=== PATIENT | female | born 1980 | race Two or more races ===

== ENCOUNTER 2016-09-09 16:00 | Emergency (ER) | payer MEDICAID ==
[~2016-09-09] VITALS: Ht 160 cm; Wt 85.7 kg
[2016-09-09 16:19] VITALS: BP 118/75
== END 2016-09-09 16:57 | disposition home or self-care (01) ==
LOC: ER 16:02
DX: L02.415 Cutaneous abscess of right lower limb (principal); L02.212 Cutaneous abscess of back [any part, except buttock and flank]; I10 Essential (primary) hypertension
CPT/HCPCS: 10061; 99284; A4606; A6403; Z7610

== ENCOUNTER 2017-07-03 13:25 | Emergency (ER) | payer MEDICAID ==
[~2017-07-03] VITALS: Ht 154.9 cm; Wt 83.5 kg
[2017-07-03 14:52] VITALS: BP 127/84
== END 2017-07-03 14:54 | disposition home or self-care (01) ==
LOC: ER 13:34
DX: L02.415 Cutaneous abscess of right lower limb (principal); L03.115 Cellulitis of right lower limb; I10 Essential (primary) hypertension
CPT/HCPCS: 10060; 99283; A4606; A6402; Z7610

== ENCOUNTER 2017-08-31 21:41 | Emergency (ER) | payer MEDICAID ==
[~2017-08-31] VITALS: Ht 165.1 cm; Wt 81.6 kg
--- NOTE | 2017-08-31 22:00 | NUR ---
37 YO FEMALE BB FAMILY. PATIENT C/O SILVERIO X 4 DAYS. PATIENT STATES SHE TOOK TYLENOL WITHOUT RELEIF. PATIENT AMBULATED TO ER BED WITH STEADY GAIT. PATIENT SKIN WARM AND DRY, RESP EVEN AND UNLABORED. PATIENT GOWNED,PLACED ON DYNAMITE SHOOTER. AWAITING ORDERS FROM PROVIDER
[2017-09-01] MEDS ORDERED: CYCLOBENZAPRINE 10 MG TABLET PO ONE
[2017-09-01] MEDS ORDERED: ONDANSETRON 4 MG TAB.RAPDIS PO ONE
[2017-09-01] MEDS ORDERED: KETOROLAC TROMETHAMINE INJ 60 MG/2 ML VIAL IM ONE
--- NOTE | 2017-09-01 | NUR ---
MEDICATED PATIENT ORDERED
[2017-09-01] MEDS ORDERED: KETOROLAC TROMETHAMINE INJ 30 MG/ML VIAL ONE (00:21)
[2017-09-01] MEDS ORDERED: ONDANSETRON 4 MG TAB.RAPDIS ONE (00:21)
[2017-09-01] MEDS ORDERED: CYCLOBENZAPRINE 10 MG TABLET ONE (00:21)
[2017-09-01 02:54] VITALS: BP 121/75
--- NOTE | 2017-09-01 02:54 | NUR ---
Patient discharged to home in stable condition. Written and verbal after care instructions given. Patient verbalizes understanding of instruction.PT ambulatory with a steady gait
== END 2017-09-01 02:55 | disposition home or self-care (01) ==
LOC: ER 21:44
DX: S29.012A Strain of muscle and tendon of back wall of thorax, initial encounter (principal); M54.2 Cervicalgia; R51 Headache; X58.XXXA Exposure to other specified factors, initial encounter; Y93.89 Activity, other specified; Y92.89 Other specified places as the place of occurrence of the external cause; Y99.8 Other external cause status
CPT/HCPCS: 70450; 72040; 72074; 96372; 99284; A4606; J1885; Q0162; Z7610

== ENCOUNTER 2017-10-07 16:34 | Emergency (ER) | payer MEDICAID ==
[~2017-10-07] VITALS: Ht 165.1 cm; Wt 74.8 kg
[2017-10-07 16:46] VITALS: BP 158/92
[2017-10-07] MEDS ORDERED: LORAZEPAM 1 MG TABLET ONE (17:39)
[2017-10-07] MEDS: IV NS 0.9% 1,000 ML BAG IV ONE (17:43)
[2017-10-07] MEDS: LORAZEPAM 1 MG TABLET PO ONE (17:43)
== END 2017-10-07 18:38 | disposition home or self-care (01) ==
LOC: ER 16:35
DX: F12.10 Cannabis abuse, uncomplicated (principal)
CPT/HCPCS: A4606; J7030; Z7610

== ENCOUNTER 2018-09-05 16:36 | Emergency (ER) | payer MEDICAID ==
[~2018-09-05] VITALS: Ht 154.9 cm; Wt 83.0 kg
[2018-09-05 16:43] VITALS: BP 158/94
[2018-09-05] MEDS ORDERED: ACETAMINOPHEN 325 MG TABLET PO ONE (17:30)
[2018-09-05] MEDS ORDERED: ACETAMINOPHEN ES 500 MG TABLET ONE (17:31)
== END 2018-09-05 18:08 | disposition home or self-care (01) ==
LOC: ER 16:38
DX: J06.9 Acute upper respiratory infection, unspecified (principal)
CPT/HCPCS: 71045-TC

== ENCOUNTER 2019-04-17 19:28 | Emergency (ER) | payer MEDICAID ==
[~2019-04-17] VITALS: Ht 157.5 cm; Wt 86.2 kg
[2019-04-17 20:07] VITALS: BP 145/93
== END 2019-04-17 21:04 | disposition home or self-care (01) ==
LOC: ER 19:30
DX: L03.116 Cellulitis of left lower limb (principal); I10 Essential (primary) hypertension
CPT/HCPCS: 99283; A6407 ×3

== ENCOUNTER 2019-08-01 12:03 | Emergency (ER) | payer MEDICAID ==
[~2019-08-01] VITALS: Ht 152.4 cm; Wt 89.8 kg
[2019-08-01 12:12] VITALS: BP 164/106
--- NOTE | 2019-08-01 12:35 | NUR ---
Patient discharged to home in stable condition. Written and verbal after care instructions given. Patient verbalizes understanding of instruction.
== END 2019-08-01 12:37 | disposition home or self-care (01) ==
LOC: ER 12:06
DX: M65.4 Radial styloid tenosynovitis [de Quervain] (principal); I10 Essential (primary) hypertension

== ENCOUNTER 2020-02-14 13:40 | Emergency (ER) | payer MEDICAID ==
[~2020-02-14] VITALS: Ht 152.4 cm; Wt 83.5 kg
--- NOTE | 2020-02-14 14:11 | NUR ---
BIBS FROM HOME TO ER BED 7. AAOX4. NOT IN RESP DISTRESS. AMBUALTORY. CAME IN FOR C/O ELEVATED BP, HEADACHE AND NECK PAIN X 2 DAYS. PER PT, SHE NOTED HER BP W/ SBP IN THE 200s AND DBP IN THE 100s. PT IS ALSO HAVING PAIN ON THE BACK OF THE HEAD EXTENDING DOWN TO BACK OF THE NECK. NO NEURO DEFICIT NOTED. PERRLA. PT TOOK AMLODIPINE 5MG AND LISINOPRIL 10MG THIS MORNING. UPON ASSESSMENT, PTS BP NOTED @ 147/102. DENIES CHEST PAIN. PT REPORTS NAUSEA. PT IS ON MONITOR. MD AT BEDSIDE FOR EVAL.
[2020-02-14 14:48] LABS: BASOPHILS % (AUTO) 0.5 % (0.0-2.0); EOSINOPHILS % (AUTO) 1.7 % (0.0-6.0); HEMATOCRIT 39 % (33-45); HEMOGLOBIN 13.1 g/dL (11.5-14.8); LYMPHOCYTES # (AUTO) 2.3 /CMM (0.8-4.8); LYMPHOCYTES % (AUTO) 31.6 % (20.0-44.0); MEAN CORPUSCULAR HGB CONC 33 g/dl (31.0-36.0); MEAN CORPUSCULAR VOLUME 89 fL (82-100); MONOCYTES # (AUTO) 0.5 /CMM (0.1-1.30); MONOCYTES % (AUTO) 6.8 % (2.0-12.0); NEUTROPHILS # (AUTO) 4.4 /CMM (1.8-8.9); NEUTROPHILS % (AUTO) 59.4 % (43.0-81.0); PLATELET COUNT (AUTO) 219 /CMM (150-450); RED BLOOD CELL COUNT(AUTO) 4.38 MIL/uL (4.0-5.2); WHITE BLOOD COUNT (AUTO) 7.4 K/uL (4.3-11.0)
[2020-02-14 14:55] LABS: CREATININE 0.7 mg/dL (0.6-1.3); POTASSIUM 3.9 mmol/L (3.5-5.1)
--- NOTE | 2020-02-14 16:27 | NUR ---
back from ct
--- NOTE | 2020-02-14 17:38 | NUR ---
Patient discharged to home in stable condition. Written and verbal after care instructions given. Patient verbalizes understanding of instruction. Pt ambulatory with a steady gait
[2020-02-14 17:39] VITALS: BP 164/95
== END 2020-02-14 17:40 | disposition home or self-care (01) ==
LOC: ER 13:45
DX: R51 Headache (principal); F43.9 Reaction to severe stress, unspecified; I10 Essential (primary) hypertension
CPT/HCPCS: 36415; 70450-TC; 80048-TC; 84702-TC; 85025-TC

== ENCOUNTER 2021-02-26 13:54 | Emergency (ER) | payer MEDICAID ==
[~2021-02-26] VITALS: Ht 152.4 cm; Wt 84.4 kg
--- NOTE | 2021-02-26 14:16 | NUR ---
THE PATIENT BIBS FOR C/O HEADACHE AND DIZZINESS X 3 DAYS. THE PATIENT RATES HEADACHE 8/10. IN ROOM AIR AND DENIES SOB. RESPIRATION REGULAR AND UNLABORED. WILL CONTINUE TO MONITOR THE PATIENT.
[2021-02-26] MEDS ORDERED: MECLIZINE HCL 25 MG TABLET ONE (14:22)
--- NOTE | 2021-02-26 14:25 | NUR ---
PHLEBATOMIST AT THE BEDSIDE
[2021-02-26] MEDS ORDERED: MECLIZINE HCL 12.5 MG TABLET PO ONE (14:30)
[2021-02-26 14:32] LABS: BASOPHILS % (AUTO) 0.8 % (0.0-2.0); EOSINOPHILS % (AUTO) 3.2 % (0.0-6.0); HEMATOCRIT 38 % (33-45); LYMPHOCYTES # (AUTO) 2.3 K/uL (0.8-4.8); LYMPHOCYTES % (AUTO) 38.6 % (20.0-44.0); MEAN CORPUSCULAR HGB CONC 34 g/dl (31.0-36.0); MEAN CORPUSCULAR VOLUME 88 fL (82-100); MONOCYTES # (AUTO) 0.6 K/uL (0.1-1.30); MONOCYTES % (AUTO) 9.9 % (2.0-12.0); NEUTROPHILS # (AUTO) 2.8 K/uL (1.8-8.9); NEUTROPHILS % (AUTO) 47.5 % (43.0-81.0); PLATELET COUNT (AUTO) 230 K/uL (150-450); RED BLOOD CELL COUNT(AUTO) 4.36 MIL/uL (4.0-5.2); WHITE BLOOD COUNT (AUTO) 5.9 K/uL (4.3-11.0)
[2021-02-26 14:45] LABS: CARBON DIOXIDE 28 mmol/L (21-32); CHLORIDE 106 mmol/L (98-107); CREATININE 0.8 mg/dL (0.6-1.3); GLUCOSE 100 mg/dL (74-106); POTASSIUM 3.9 mmol/L (3.5-5.1); SODIUM SERUM 142 mmol/L (136-145); UREA NITROGEN, BLOOD 7 mg/dL (7-18)
--- NOTE | 2021-02-26 14:47 | NUR ---
URINE COLLECTED AND SENT TO THE LAB
[2021-02-26 14:51] LABS: ALANINE AMINOTRANSFERASE 24 U/L (12-78); ALBUMIN 3.5 g/dL (3.4-5.0); ALKALINE PHOSPHATASE 70 U/L (46-116); ASPARTATE AMINOTRANSFERASE 19 U/L (15-37); BILIRUBIN,DIRECT 0.1 mg/dL (0.0-0.2); BILIRUBIN,TOTAL 0.1 mg/dL (0.2-1.0); TOTAL PROTEIN, SERUM 7.6 g/dL (6.4-8.2)
[2021-02-26 15:03] LABS: BILIRUBIN,URINE Negative (NEGATIVE); COLOR,URINE YELLOW (YELLOW); LEUKOCYTE ESTERASE ,URINE Negative (NEGATIVE); NITRITE, URINE Negative (NEGATIVE); PH,URINE 7.5 (5.0-8.0); PROTEIN,URINE Negative (NEGATIVE); UGLUCOSE Negative (NEGATIVE); UROBILINOGEN,URINE 0.2 EU/dL (0.2)
[2021-02-26 15:14] LABS: BACTERIA,URINE Few /HPF (None Seen); RBC,URINE 0-2 /HPF (0-2); SQUAMOUS EPITHELIAL CELL,UR Few /HPF (None Seen); WBC,URINE 0-2 /HPF (0-3)
--- NOTE | 2021-02-26 15:16 | NUR ---
THE PATIENT IS PROVIDED WITH FOOD AND WATER. TOLERATES WELL. WILL CONTINUE TO MONITOR THE PATIENT.
[2021-02-26] MEDS ORDERED: CODE1CAP32 PO (15:57)
--- NOTE | 2021-02-26 16:11 | NUR ---
Patient discharged to home in stable condition. Written and verbal after care instructions given. Patient verbalizes understanding of instruction.
[2021-02-26 16:13] VITALS: BP 136/77
== END 2021-02-26 16:13 | disposition home or self-care (01) ==
LOC: ER 13:54
DX: R51.9 Headache, unspecified (principal); I10 Essential (primary) hypertension; Z79.899 Other long term (current) drug therapy
CPT/HCPCS: 36415; 70450; 80048; 80076; 81001; 84484; 84703; 85025; 93005; 99285; J8597

== ENCOUNTER 2022-01-13 11:40 | Emergency (ER) | payer MEDICAID ==
[~2022-01-13] VITALS: Ht 154.9 cm; Wt 84.4 kg
[~2022-01-13 11:40] MED LIST: CODE1CAP32 PO
[2022-01-13 11:46] VITALS: BP 152/102
[2022-01-13] MEDS ORDERED: HYDR453.3 TP (12:16)
[2022-01-13] MEDS ORDERED: DIPH50CA4 PO (12:16)
--- NOTE | 2022-01-13 12:30 | NUR ---
Patient discharged to home in stable condition. Written and verbal after care instructions given. Patient verbalizes understanding of instruction.
== END 2022-01-13 12:36 | disposition home or self-care (01) ==
LOC: ER 11:42
DX: S80.862A Insect bite (nonvenomous), left lower leg, initial encounter (principal); S80.861A Insect bite (nonvenomous), right lower leg, initial encounter; I10 Essential (primary) hypertension; Z79.899 Other long term (current) drug therapy; W57.XXXA Bitten or stung by nonvenomous insect and other nonvenomous arthropods, initial encounter; Y93.89 Activity, other specified; Y92.89 Other specified places as the place of occurrence of the external cause; Y99.8 Other external cause status

== ENCOUNTER 2022-01-24 19:07 | Emergency (ER) | payer MEDICAID ==
[~2022-01-24] VITALS: Ht 152.4 cm; Wt 83.9 kg
[~2022-01-24 19:07] MED LIST changes: +DIPH50CA4 PO; +HYDR453.3 TP
[2022-01-24 19:53] VITALS: BP 135/76
[2022-01-24] MEDS ORDERED: DESO60OI6 TP (20:01)
--- NOTE | 2022-01-24 20:01 | NUR ---
BIB SELF, C/O RASH ON THE PALMS OF THE HANDS WHICH STATED THIS FRIDAY AFTER CLEANING WITH CHEMICALS. PATIENT ON ROOM AIR, BREATHING EVEN AND UNLABORED, CONNENCTED TO MONITOR.
== END 2022-01-24 20:23 | disposition home or self-care (01) ==
LOC: ER 19:10
DX: L25.9 Unspecified contact dermatitis, unspecified cause (principal); I10 Essential (primary) hypertension; Z79.899 Other long term (current) drug therapy

== ENCOUNTER 2022-08-13 15:19 | Emergency (ER) | payer MEDICAID ==
[~2022-08-13] VITALS: Ht 152.4 cm; Wt 84.8 kg
[~2022-08-13 15:19] MED LIST changes: +DESO60OI6 TP
[2022-08-13 15:30] VITALS: BP 144/104
[2022-08-13] MEDS ORDERED: KETO10TA2 PO (15:55)
[2022-08-13] MEDS ORDERED: AZIT500T PO (15:55)
[2022-08-13] MEDS ORDERED: GUAI1TBM19 PO (15:55)
--- NOTE | 2022-08-13 16:12 | NUR ---
Patient discharged to home in stable condition. Written and verbal after care instructions given. Patient verbalizes understanding of instruction.
== END 2022-08-13 16:12 | disposition home or self-care (01) ==
LOC: ER 15:22
DX: J40 Bronchitis, not specified as acute or chronic (principal); H92.03 Otalgia, bilateral; J02.9 Acute pharyngitis, unspecified; I10 Essential (primary) hypertension; Z79.899 Other long term (current) drug therapy

== ENCOUNTER 2023-02-05 17:32 | Emergency (ER) | payer MEDICAID ==
[~2023-02-05] VITALS: Ht 154.9 cm; Wt 86.2 kg
[~2023-02-05 17:32] MED LIST changes: +AZIT500T PO; +GUAI1TBM19 PO; +KETO10TA2 PO
[2023-02-05] MEDS ORDERED: CLIN300C12 PO (19:02)
[2023-02-05 19:28] VITALS: BP 132/88; TEMP 98.6; O2SAT 100
== END 2023-02-05 19:28 | disposition home or self-care (01) ==
LOC: ER 17:34
DX: L03.115 Cellulitis of right lower limb (principal); L02.415 Cutaneous abscess of right lower limb; I10 Essential (primary) hypertension

== ENCOUNTER 2023-09-29 16:17 | Emergency (ER) | payer MEDICAID, OTHER ==
[~2023-09-29] VITALS: Ht 154.9 cm; Wt 84.4 kg
[~2023-09-29 16:17] MED LIST changes: +CLIN300C12 PO
[2023-09-29] MEDS ORDERED: IBUP-1955 PO (20:44)
[2023-09-29] MEDS ORDERED: ACET-2605 PO (20:44)
[2023-09-29] MEDS ORDERED: CEPH500C2 PO (20:44)
[2023-09-29] MEDS ORDERED: CEPHALEXIN MONOHYDRATE 500 MG CAPSULE PO ONE ×2 (20:45→20:50)
[2023-09-29] MEDS: IBUPROFEN 600 MG TABLET PO ONE (20:45)
[2023-09-29] MEDS: CEPHALEXIN MONOHYDRATE 500 MG CAPSULE PO ONE (20:45)
[2023-09-29] MEDS ORDERED: IBUPROFEN 600 MG TABLET ONE ×2 (20:45→20:50)
[2023-09-29 20:53] VITALS: BP 143/96; TEMP 98.8; O2SAT 99
== END 2023-09-29 20:54 | disposition home or self-care (01) ==
LOC: ER 16:21
DX: J34.0 Abscess, furuncle and carbuncle of nose (principal); I10 Essential (primary) hypertension; Z79.899 Other long term (current) drug therapy

== ENCOUNTER 2024-04-14 06:05 | Emergency (ER) | payer OTHER ==
[~2024-04-14] VITALS: Ht 154.9 cm; Wt 86.2 kg
[~2024-04-14 06:05] MED LIST changes: +ACET-2605 PO; +CEPH500C2 PO; +IBUP-1955 PO
[2024-04-14] MEDS ORDERED: ONDANSETRON HCL/PF 4 MG/2 ML VIAL ONE (06:42)
[2024-04-14] MEDS ORDERED: FAMOTIDINE/PF INJ 20 MG/2 ML VIAL IV ONE (06:42)
[2024-04-14] MEDS: ONDANSETRON HCL/PF 4 MG/2 ML VIAL IVP ONE (06:56)
[2024-04-14] MEDS: IV NS 0.9% 1,000 ML BAG IV ONE (06:56)
[2024-04-14] MEDS: FAMOTIDINE/PF INJ 20 MG/2 ML VIAL IV ONE (06:56)
[2024-04-14 06:59] LABS: BASOPHILS % (AUTO) 0.2 % (0.0-2.0); EOSINOPHILS # (AUTO) 0.1 K/uL (0.0-0.7); HEMATOCRIT 39 % (33-45); HEMOGLOBIN 12.9 g/dL (11.5-14.8); LYMPHOCYTES # (AUTO) 1.3 K/uL (0.8-4.8); LYMPHOCYTES % (AUTO) 12.4 % (20.0-44.0); MEAN CORPUSCULAR HEMOGLOBIN 28 PG (26.0-33.0); MEAN CORPUSCULAR HGB CONC 34 g/dl (31.0-36.0); MEAN CORPUSCULAR VOLUME 85 fL (82-100); MONOCYTES # (AUTO) 0.5 K/uL (0.1-1.30); MONOCYTES % (AUTO) 4.8 % (2.0-12.0); NEUTROPHILS # (AUTO) 8.6 K/uL (1.8-8.9); NEUTROPHILS % (AUTO) 81.6 % (43.0-81.0); PLATELET COUNT (AUTO) 232 K/uL (150-450); RED BLOOD CELL COUNT(AUTO) 4.55 MIL/uL (4.0-5.2); RED CELL DISTRIBUTION WIDTH 15.9 % (11.5-15.0); WHITE BLOOD COUNT (AUTO) 10.5 K/uL (4.3-11.0)
[2024-04-14 07:19] LABS: ALANINE AMINOTRANSFERASE 32 U/L (12-78); ALBUMIN 3.6 g/dL (3.4-5.0); ALKALINE PHOSPHATASE 70 U/L (46-116); ASPARTATE AMINOTRANSFERASE 19 U/L (15-37); BILIRUBIN,DIRECT 0.1 mg/dL (0.0-0.2); BILIRUBIN,TOTAL 0.2 mg/dL (0.2-1.0); CALCIUM, SERUM 8.9 mg/dL (8.5-10.1); CARBON DIOXIDE 28 mmol/L (21-32); CHLORIDE 106 mmol/L (98-107); CREATININE 0.6 mg/dL (0.6-1.3); GLUCOSE 104 mg/dL (74-106); LIPASE 40 U/L (16-77); SODIUM SERUM 142 mmol/L (136-145); TOTAL PROTEIN, SERUM 7.8 g/dL (6.4-8.2); UREA NITROGEN, BLOOD 13 mg/dL (7-18)
[2024-04-14 07:57] VITALS: BP 137/92; TEMP 98.2; O2SAT 99
== END 2024-04-14 08:15 | disposition home or self-care (01) ==
LOC: ER 06:07
DX: R11.2 Nausea with vomiting, unspecified (principal); I10 Essential (primary) hypertension; R19.7 Diarrhea, unspecified; Z79.82 Long term (current) use of aspirin
CPT/HCPCS: 99285; 96374; 71045; 96361; 96375; 93005; 85025; 80048; 83690; 80076; 36415; 84484; J3490; J2405; J7030

== ENCOUNTER 2024-04-27 14:36 | Emergency (ER) | payer OTHER ==
[~2024-04-27] VITALS: Ht 152.4 cm; Wt 83.9 kg
[2024-04-27 15:44] LABS: BASOPHILS % (AUTO) 0.1 % (0.0-2.0); EOSINOPHILS # (AUTO) 0.1 K/uL (0.0-0.7); EOSINOPHILS % (AUTO) 0.4 % (0.0-6.0); HEMATOCRIT 38 % (33-45); HEMOGLOBIN 12.5 g/dL (11.5-14.8); LYMPHOCYTES # (AUTO) 1.7 K/uL (0.8-4.8); LYMPHOCYTES % (AUTO) 7.7 % (20.0-44.0); MEAN CORPUSCULAR HEMOGLOBIN 28 PG (26.0-33.0); MEAN CORPUSCULAR HGB CONC 33 g/dl (31.0-36.0); MEAN CORPUSCULAR VOLUME 85 fL (82-100); MONOCYTES # (AUTO) 1.7 K/uL (0.1-1.30); MONOCYTES % (AUTO) 7.5 % (2.0-12.0); NEUTROPHILS # (AUTO) 18.7 K/uL (1.8-8.9); NEUTROPHILS % (AUTO) 84.3 % (43.0-81.0); PLATELET COUNT (AUTO) 250 K/uL (150-450); RED BLOOD CELL COUNT(AUTO) 4.44 MIL/uL (4.0-5.2); RED CELL DISTRIBUTION WIDTH 15.3 % (11.5-15.0); WHITE BLOOD COUNT (AUTO) 22.2 K/uL (4.3-11.0)
[2024-04-27 16:04] LABS: CALCIUM, SERUM 9.4 mg/dL (8.5-10.1); CREATININE 0.8 mg/dL (0.6-1.3); POTASSIUM 3.7 mmol/L (3.5-5.1)
[2024-04-27 16:17] LABS: BILIRUBIN,DIRECT 0.1 mg/dL (0.0-0.2); BILIRUBIN,TOTAL 0.1 mg/dL (0.2-1.0); TOTAL PROTEIN, SERUM 8.4 g/dL (6.4-8.2)
[2024-04-27] MEDS: IV NS 0.9% 1,000 ML BAG IV ONE (16:54)
[2024-04-27] MEDS ORDERED: KETOROLAC TROMETHAMINE 15 MG/ML VIAL ONE (17:16)
[2024-04-27] MEDS ORDERED: DICYCLOMINE HCL 10 MG CAPSULE PO ONE (17:17)
[2024-04-27] MEDS ORDERED: FAMOTIDINE/PF INJ 20 MG/2 ML VIAL IV ONE (17:17)
[2024-04-27] MEDS: FAMOTIDINE/PF INJ 20 MG/2 ML VIAL IV ONE (17:29)
[2024-04-27] MEDS: KETOROLAC TROMETHAMINE 15 MG/ML VIAL IV ONE (17:30)
[2024-04-27] MEDS: DICYCLOMINE HCL 10 MG CAPSULE PO ONE (17:30)
[2024-04-27 17:45] VITALS: BP 128/78; TEMP 97; O2SAT 98
== END 2024-04-27 17:46 | disposition home or self-care (01) ==
LOC: ER 14:40
DX: R10.31 Right lower quadrant pain (principal); R19.7 Diarrhea, unspecified; R11.10 Vomiting, unspecified; I10 Essential (primary) hypertension; Z79.82 Long term (current) use of aspirin; Z79.899 Other long term (current) drug therapy
CPT/HCPCS: 99285; 74176; 96374; 96361; 96375; 85025; 80048; 83690; 80076; 36415; J3490; J7030; J1885

== ENCOUNTER 2024-12-26 08:08 | Emergency (ER) | payer OTHER ==
[~2024-12-26] VITALS: Ht 154.9 cm; Wt 86.2 kg
[2024-12-26 08:31] VITALS: BP 140/93; TEMP 98.4
[2024-12-26] MEDS ORDERED: OLOP5DRO15 EACHEYE (08:50)
[2024-12-26] MEDS ORDERED: LORA10TA7 PO (08:50)
[2024-12-26 08:54] VITALS: O2SAT 98
== END 2024-12-26 08:55 | disposition home or self-care (01) ==
LOC: ER 08:08
DX: H10.33 Unspecified acute conjunctivitis, bilateral (principal); I10 Essential (primary) hypertension; Z79.82 Long term (current) use of aspirin; Z79.899 Other long term (current) drug therapy

== ENCOUNTER 2025-01-06 14:35 | Emergency (ER) | payer OTHER ==
[~2025-01-06] VITALS: Ht 154.9 cm; Wt 93.0 kg
[~2025-01-06 14:35] MED LIST changes: +LORA10TA7 PO; +OLOP5DRO15 EACHEYE
[2025-01-06] MEDS ORDERED: EPINEPHRINE (1:1000) 1 MG/ML AMPUL ONE (14:47)
[2025-01-06] MEDS: EPINEPHRINE (1:1000) 1 MG/ML AMPUL SUBCUT ONE (14:50)
[2025-01-06] MEDS ORDERED: ALBUTEROL FS 2.5 MG/3 ML VIAL.NEB ONE (14:55)
[2025-01-06] MEDS ORDERED: IPRATROPIUM NEB FS 0.5 MG/2.5 ML AMPUL.NEB ONE (14:55)
[2025-01-06 15:01] VITALS: O2SAT 97
[2025-01-06] MEDS: IPRATROPIUM NEB FS 0.5 MG/2.5 ML AMPUL.NEB NEB ONE (15:01)
[2025-01-06] MEDS: ALBUTEROL FS 2.5 MG/3 ML VIAL.NEB CONTNEB ONE (15:01)
[2025-01-06 15:16] VITALS: O2SAT 100
[2025-01-06 15:17] VITALS: O2SAT 99
[2025-01-06] MEDS: IV NS 0.9% 1,000 ML BAG IV ONE (15:30)
[2025-01-06] MEDS: FAMOTIDINE/PF INJ 20 MG/2 ML VIAL IV ONE (15:30)
[2025-01-06 15:32] VITALS: O2SAT 100
[2025-01-06] MEDS ORDERED: FAMOTIDINE/PF INJ 20 MG/2 ML VIAL IV ONE (15:38)
[2025-01-06 15:54] LABS: PLATELET COUNT (AUTO) 275 K/uL (150-450); RED BLOOD CELL COUNT(AUTO) 4.41 MIL/uL (4.0-5.2); RED CELL DISTRIBUTION WIDTH 14.3 % (11.5-15.0); WHITE BLOOD COUNT (AUTO) 15.6 K/uL (4.3-11.0)
[2025-01-06 16:08] LABS: CALCIUM, SERUM 9.2 mg/dL (8.5-10.1); CREATININE 0.7 mg/dL (0.6-1.3); SODIUM SERUM 137.0 mmol/L (136-145); UREA NITROGEN, BLOOD 14.0 mg/dL (7-18)
[2025-01-06] MEDS ORDERED: PRED20TA PO (16:38)
[2025-01-06] MEDS ORDERED: POTA20TA83 PO (16:38)
[2025-01-06] MEDS ORDERED: EPIN0.3P3 IM (16:38)
[2025-01-06] MEDS ORDERED: FAMO20TA80 PO (16:38)
[2025-01-06 17:04] VITALS: BP 139/69; TEMP 97.8; O2SAT 100
== END 2025-01-06 17:05 | disposition home or self-care (01) ==
LOC: ER 14:40
DX: T78.49XA Other allergy, initial encounter (principal); T78.1XXA Other adverse food reactions, not elsewhere classified, initial encounter; I10 Essential (primary) hypertension; E87.6 Hypokalemia; Z79.899 Other long term (current) drug therapy; Z79.82 Long term (current) use of aspirin; X58.XXXA Exposure to other specified factors, initial encounter
CPT/HCPCS: 99285; 96374; 71045; 96361; 96375; 96372; 93005; 85025; 80048; 36415; 94640 ×2; J2919; J0171; J1308; J7030

== ENCOUNTER 2025-03-28 08:48 | Emergency (ER) | payer OTHER ==
[~2025-03-28] VITALS: Ht 154.9 cm; Wt 93.0 kg
[~2025-03-28 08:48] MED LIST changes: +EPIN0.3P3 IM; +FAMO20TA80 PO; +POTA20TA83 PO; +PRED20TA PO
[2025-03-28] MEDS ORDERED: ACETAMINOPHEN ES 500 MG TABLET ONE (09:44)
[2025-03-28] MEDS ORDERED: METOCLOPRAMIDE HCL 10 MG/2 ML VIAL ONE (09:44)
[2025-03-28 09:46] LABS: PLATELET COUNT (AUTO) 237 K/uL (150-450); RED BLOOD CELL COUNT(AUTO) 4.51 MIL/uL (4.0-5.2); RED CELL DISTRIBUTION WIDTH 14.5 % (11.5-15.0); WHITE BLOOD COUNT (AUTO) 7.4 K/uL (4.3-11.0)
[2025-03-28 09:53] LABS: CALCIUM, SERUM 9.0 mg/dL (8.5-10.1); CREATININE 0.7 mg/dL (0.6-1.3); SODIUM SERUM 140.0 mmol/L (136-145); UREA NITROGEN, BLOOD 10.0 mg/dL (7-18)
[2025-03-28] MEDS: IV NS 0.9% 1,000 ML BAG IV ONE (09:57)
[2025-03-28] MEDS: ACETAMINOPHEN ES 500 MG TABLET PO ONE (09:58)
[2025-03-28] MEDS: METOCLOPRAMIDE HCL 10 MG/2 ML VIAL IV ONE (09:58)
[2025-03-28 10:00] LABS: ASPARTATE AMINOTRANSFERASE 13.0 U/L (15-37); TOTAL PROTEIN, SERUM 7.7 g/dL (6.4-8.2)
[2025-03-28] MEDS ORDERED: KETO10TA2 PO (10:37)
[2025-03-28 11:07] VITALS: BP 147/80; TEMP 97.9; O2SAT 98
== END 2025-03-28 11:08 | disposition home or self-care (01) ==
LOC: ER 08:52
DX: R51.9 Headache, unspecified (principal); R11.0 Nausea; I10 Essential (primary) hypertension; R10.2 Pelvic and perineal pain; Z79.52 Long term (current) use of systemic steroids; Z79.82 Long term (current) use of aspirin; Z79.891 Long term (current) use of opiate analgesic; Z79.899 Other long term (current) drug therapy
CPT/HCPCS: 99285; 96374; 70450; 96361; 96375; 85025; 80048; 80076; 84703; 36415; 84702; J1200; J2765; J7030